=== PATIENT | male | born 1945 | race Caucasian/White ===

== ENCOUNTER 2017-03-12 09:45 | Emergency (ER) | payer MEDICARE, OTHER ==
[~2017-03-12] VITALS: Ht 180.3 cm; Wt 106.6 kg
[2017-03-12] MEDS ORDERED: LISINOPRIL20 MG PO (13:07)
[2017-03-12] MEDS ORDERED: GLIPIZIDE XL10 MG PO (13:08)
[2017-03-12] MEDS ORDERED: METFORMIN HCL500 M1 PO (13:09)
[2017-03-12] MEDS ORDERED: ATENOLOL25 MG PO (13:09)
[2017-03-12] MEDS ORDERED: CLOPIDOGREL75 MG PO (13:10)
[2017-03-12] MEDS ORDERED: SIMVASTATIN20 MG PO (13:10)
[2017-03-12] MEDS ORDERED: AMLODIPINE BESYL5 MG PO (13:11)
== END 2017-03-12 13:50 | disposition home or self-care (01) ==
LOC: ED 09:45
DX: R07.9 Chest pain, unspecified (principal); I25.2 Old myocardial infarction; E11.9 Type 2 diabetes mellitus without complications; Z98.61 Coronary angioplasty status; Z79.84 Long term (current) use of oral hypoglycemic drugs; Z79.899 Other long term (current) drug therapy
CPT/HCPCS: 71020; 80053; 83735; 84484; 85025; 99284

== ENCOUNTER 2017-05-14 16:15 | Inpatient (IN) | payer MEDICARE, OTHER ==
[~2017-05-14] VITALS: Ht 180.3 cm; Wt 103.0 kg
[~2017-05-14 16:15] MED LIST: AMLODIPINE BESYL5 MG PO; ATENOLOL25 MG PO; CLOPIDOGREL75 MG PO; GLIPIZIDE XL10 MG PO; LISINOPRIL20 MG PO; METFORMIN HCL500 M1 PO; SIMVASTATIN20 MG PO
[2017-05-14] MEDS ORDERED: ALEVE220 MG PO (16:39)
[2017-05-16] MEDS ORDERED: METRONIDAZOLE500 MG PO (08:27)
[2017-05-16] MEDS ORDERED: CIPROFLOXACIN500 MG PO (08:27)
== END 2017-05-16 10:10 | disposition home or self-care (01) | DRG 392 ==
LOC: ED 16:15 → MS 20:00
PROVIDERS: ADMIT Internal Medicine
DX: K52.89 Other specified noninfective gastroenteritis and colitis (principal); E86.0 Dehydration; E83.42 Hypomagnesemia; I10 Essential (primary) hypertension; I25.10 Atherosclerotic heart disease of native coronary artery without angina pectoris; E11.9 Type 2 diabetes mellitus without complications; Z79.4 Long term (current) use of insulin; E78.5 Hyperlipidemia, unspecified; I73.9 Peripheral vascular disease, unspecified; I25.2 Old myocardial infarction; Z86.73 Personal history of transient ischemic attack (TIA), and cerebral infarction without residual deficits
CPT/HCPCS: 36415; 80048; 80053; 81001; 83690; 83735; 85025; J0744; J1650; J2270; J2405; J2550; J3475; J7030; J7120

== ENCOUNTER 2017-05-18 09:05 | Emergency (ER) | payer MEDICARE, OTHER ==
[~2017-05-18] VITALS: Ht 180.3 cm; Wt 103.0 kg
[~2017-05-18 09:05] MED LIST changes: +ALEVE220 MG PO; +CIPROFLOXACIN500 MG PO; +METRONIDAZOLE500 MG PO
[2017-05-18] MEDS ORDERED: CITRATE OF MAG296 ML PO (12:44)
== END 2017-05-18 13:36 | disposition home or self-care (01) ==
LOC: ED 09:05
DX: K59.00 Constipation, unspecified (principal); K86.1 Other chronic pancreatitis; I25.2 Old myocardial infarction; E11.9 Type 2 diabetes mellitus without complications; Z87.442 Personal history of urinary calculi; Z87.891 Personal history of nicotine dependence; Z79.899 Other long term (current) drug therapy; Z95.5 Presence of coronary angioplasty implant and graft
CPT/HCPCS: 74020; 74177; 80053; 81001; 85025; 96360; 96361; 99284; J7030; Q9967